=== PATIENT | female | born 1990 | race Caucasian/White ===

== ENCOUNTER 2017-01-19 08:10 | Emergency (ER) | payer OTHER ==
--- NOTE | 2017-01-19 08:33 | EDPHY ---
HPI/HX/ROS/PE/MDM Narrative: CHIEF COMPLAINT: Diplopia, headache HPI: The patient is a 26 y/o female arriving with her complaining of headache for the last 3 weeks and diplopia onset 3 days ago. She describes a waxing and waning throbbing posterior headache for about 3 weeks. She saw her PCP 2 weeks ago for this and was started on amitriptyline, but did not have any improvement after 3 days of use and discontinued it. She had some improvement in her pain with ibuprofen. Three days ago she developed associated horizontal diplopia and saw her senior water/wastewater engineer. He noticed a disconjugate gaze, but no sign of optic nerve swelling, and recommended a brain MRI. When closing either eye her diplopia resolves. Upon waking today, her pain localized more to her left occipital region and she opted to come into the ED for evaluation. Her pain extends slightly into her neck. She denies recent head or neck trauma, weakness , paresthesias, fever, or other symptoms. She has no prior history of eye issues or headaches. REVIEW OF SYSTEMS: Aside from elements discussed in the HPI, a comprehensive 10-point review of systems was reviewed and is negative. 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 Currently works as OBGYN RN. at bedside. PHYSICAL EXAM: General:Patient is alert, in no acute distress. ENT:Disconjugate gaze, abduction weakness of her left eye. PERRLA. ENT inspection normal. Neck: Normal inspection. Full range of motion. Respiratory:No respiratory distress. Breath sounds normal bilaterally. Cardiovascular: Regular rate and rhythm. Strong peripheral pulses. Normal cap refill. Abdomen:The abdomen is nontender to palpation. There are no peritoneal signs. Back: Normal to inspection. No tenderness to palpation. Skin: Normal color. No rash. Warm and dry. Extremities: Normal appearance. Full range of motion. Neuro: Oriented x3. Normal motor function. Normal sensory function. ED Course: This is a healthy 26 y/o female who presents with a 3-week history of posterior headache and 3-day history of diplopia. She has an obvious disconjugate gaze with abduction weakness of her left eye on exam that could indicate a 6th nerve palsy. Her neuro exam is otherwise normal. Plan for brain MRI with and without IV contrast and MRA. 1mg PO Ativan administered for anxiety. IV established and basic labs drawn. Brain MRI shows nothing acute, likely incidental finding in clivis may require CT follow up. Consulted with Dr. Blount, neurology. He recommends prednisone and will evaluate her in his office tomorrow. I discussed the MRI results and plan with the patient. We will perform follow up head CT here. 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 Consulted with neurosurgery. He will review films and call me back. Neurosurgery is assessing patient in the ED and will discuss treatment options with her. 1335: Dr. Stone discussed imaging and treatment options with patient. He recommends discharge on Medrol dose pack and outpatient follow up with his office for biopsy. - Data Points Imaging Results: Imaging Impressions Brain MRI 01/19/17 08:37 Impression: 1. Expansile lesion in the clivus. 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 Recommend noncontrast CT for further evaluation to evaluate for erosion that would indicate a more aggressive lesion. 2. Otherwise, normal MRI of the brain without and with contrast. Results called and discussed with Donell Mcfarlane M.D. on January 19, 2017 at 10:35 a.m. Head MRA 01/19/17 08:37 Impression: Negative MRA of the [place]. Results called and discussed with Donell Mcfarlane MD at 01/19/2017 10:37. Neck MRA 01/19/17 08:37 Impression: Normal MR angiogram of the neck. Measurement of carotid stenosis is based on the residual internal carotid diameter with [place] Symptomatic Carotid Endarterectomy Trial (NASCET) based stenosis levels. Results called and discussed with Donell Mcfarlane MD at 01/19/2017 1030 hours. Imaging: Discussed imaging studies w/ call center director Radiologist, I viewed and interpreted images myself Laboratory Results: Laboratory Results 01/19/17 08:40 01/19/17 08:40 01/19/17 01/19/17 01/19/17 08:40 08:40 08:40 WBC 10.12 10^3/uL H 10^3/uL (3.80-9.50) RBC 4.73 10^6/uL 10^6/uL (4.18-5.33) Hgb 15.0 g/dL g/dL (12.6-16.3) Hct 42.3 % % (38.0-47.0) MCV 89.4 fL fL (81.5-99.8) MCH 31.7 pg pg (27.9-34.1) MCHC 35.5 g/dL g/dL (32.4-36.7) RDW 11.7 % % (11.5-15.2) Plt Count 320 10^3/uL 10^3/uL (150-400) MPV 9.4 fL fL (8.7-11.7) Neut % (Auto) 74.1 % % (39.3-74.2) Lymph % (Auto) 16.5 % % (15.0-45.0) [place] % (Auto) 6.7 % % (4.5-13.0) Eos % (Auto) 0.6 % % (0.6-7.6) Baso % (Auto) 0.8 % % (0.3-1.7) Nucleat RBC Rel Count 0.0 % % (0.0-0.2) Absolute Neuts (auto) 7.50 10^3/uL H 10^3/uL (1.70-6.50) Absolute Lymphs (auto) 1.67 10^3/uL 10^3/uL (1.00-3.00) Absolute Monos (auto) 0.68 10^3/uL 10^3/uL (0.30-0.80) Absolute Eos (auto) 0.06 10^3/uL 10^3/uL (0.03-0.40) Absolute Basos (auto) 0.08 10^3/uL 10^3/uL (0.02-0.10) Absolute Nucleated RBC 0.00 10^3/uL 10^3/uL (0-0.01) Immature Gran % 1.3 % H % (0.0-1.1) Immature Gran # 0.13 10^3/uL H 10^3/uL (0.00-0.10) Sodium 140 mEq/L mEq/L (134-144) Potassium 3.8 mEq/L mEq/L (3.5-5.2) Chloride 103 mEq/L mEq/L (97-110) Carbon Dioxide 23 mEq/l mEq/l (22-31) Anion Gap 14 mEq/L mEq/L (8-16) BUN 12 mg/dL mg/dL (7-23) Creatinine 0.9 mg/dL mg/dL (0.6-1.0) Estimated GFR > 60 Glucose 99 mg/dL mg/dL (70-100) Calcium 9.9 mg/dL mg/dL (8.5-10.4) Beta HCG, Qual NEGATIVE Medications Given: Discontinued Medications Diazepam (Valium) 5 mg PO EDNOW ONE Stop: 01/19/17 08:53 Last Admin: 01/19/17 09:05 Dose: 5 mg Prednisone (Prednisone) 60 mg PO EDNOW ONE Stop: 01/19/17 10:37 Last Admin: 01/19/17 11:13 Dose: 60 mg General Time Seen by Provider: 01/19/17 08:12 Initial Vital Signs: Initial Vital Signs Temperature (C) 36.8 C 01/19/17 08:14 Heart Rate 90 01/19/17 08:14 Respiratory Rate 16 01/19/17 08:14 Blood Pressure 120/77 01/19/17 08:14 O2 Sat (%) 96 01/19/17 08:14 O2 Delivery Mode Room Air Allergies/Adverse Reactions: No Known Allergies Allergy (Unverified 01/19/17 08:13) Home Medications: Medication Instructions Recorded Norgestimate-Ethinyl Estradiol 1 each PO DAILY 01/19/17 [Trinessa Lo Tablet] predniSONE 60 mg PO ONCE 1 Days tab 01/19/17 Departure - Departure Disposition: Home, Routine, Self-Care Clinical Impression: Diplopia, Chordoma Condition: Good Instructions: Diplopia (ED), Methylprednisolone (By mouth) Additional Instructions: 1. Follow up with Dr. Stone in the next week as directed. 2. Take Medrol as prescribed. 3. Return to the ED for severe pain, weakness or numbness on one side of your body, fever, or other worsening of condition. Referrals: Valentina Bautista NP [Primary Care Provider] - As per Instructions Fuad Stone MD [Medical Doctor] - As per Instructions Prescriptions: predniSONE 60 mg PO ONCE 1 Days tab Report Scribed for: Donell Mcfarlane Report Scribed by: Tessa Davidson Date of Report: 01/19/17 Time of Report: 08:21 Physician Review and Approval Statement: Portions of this note were transcribed by an ED scribe. I personally performed the history, physical exam, and medical decision making; and confirm the accuracy of the information in the transcribed note.
[2017-01-19] MEDS ORDERED: GADOBUTROL 10 ML VIAL IVP ONE (08:43)
[2017-01-19 08:49] LABS: % IMMATURE GRANULYOCYTES 1.3 % (0.0-1.1); ABSOLUTE IMMATURE GRANULOCYTES 0.13 10^3/uL (0.00-0.10); ADD DIFF? NO; ADD MORPH? NO; ADD SCAN? NO; ATYPICAL LYMPHOCYTE FLAG 10 (0-99); FRAGMENT RBC FLAG 0 (0-99); HEMATOCRIT 42.3 % (38.0-47.0); LEFT SHIFT FLG 10 (0-99); LIPEMIA HEMOLYSIS FLAG 90 (0-99); MEAN CELL HEMOGLOBIN 31.7 pg (27.9-34.1); MEAN CELL HEMOGLOBIN CONCENTR. 35.5 g/dL (32.4-36.7); MEAN CELL VOLUME 89.4 fL (81.5-99.8); MEAN PLATELET VOLUME 9.4 fL (8.7-11.7); PLATELET CLUMPS FLAG 0 (0-99); PLATELET COUNT 320 10^3/uL (150-400); RED BLOOD CELL COUNT 4.73 10^6/uL (4.18-5.33); RED CELL DISTRIBUTION WIDTH 11.7 % (11.5-15.2)
[2017-01-19] MEDS ORDERED: DIAZEPAM 5 MG TAB PO ONE (08:52)
[2017-01-19 09:14] LABS: ANION GAP 14 mEq/L (8-16); CALCIUM 9.9 mg/dL (8.5-10.4); CARBON DIOXIDE 23 mEq/l (22-31); CHLORIDE 103 mEq/L (97-110); CREATININE 0.9 mg/dL (0.6-1.0); GLOMERULAR FILTRATION RATE > 60; GLUCOSE 99 mg/dL (70-100); POTASSIUM 3.8 mEq/L (3.5-5.2); SODIUM 140 mEq/L (134-144)
[2017-01-19] MEDS ORDERED: predniSONE 20 MG TAB PO ONE (10:36)
[2017-01-19 11:15] VITALS: PULSE 99
[2017-01-19 13:53] VITALS: BP 125/71; RESP 18; TEMP 98.8; O2SAT 96
--- NOTE | 2017-01-19 16:07 | GCON ---
[f rep st] CONSULTATION NEUROSURGERY CONSULTATION CHIEF COMPLAINT: Double vision and headache. HISTORY OF PRESENT ILLNESS: This is a 26-year-old female, who states that she started having headach es approximately 3 weeks ago but had been getting better over the last few days, when she noticed maría t she started to have double vision 3 days ago. She states at first it was only with far away items but, as the days have progressed, she started having double vision with closer items as well. She st ates this is worse when looking straight on or to the left but goes away if she looks over to the rig ht. She denies any other symptoms such as nausea, vomiting, any numbness, tingling or pain in her ar ms or legs, any problems with her balance. 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 She said she also went to her PCP who started her on amitriptyline 3 weeks ago to try to help with her headaches but she only took this for 3 days as she did not feel it was helping. The patient, at this time, is not currently on any other blood thinnin g medications and has no other significant past medical history. She, otherwise, has no complaints a t this time. REVIEW OF SYSTEMS: All pertinent positive and negative review of systems are as stated in HPI. PAST MEDICAL HISTORY: Not significant for any chronic medical conditions. CURRENT MEDICATIONS: Include control, multivitamin and ibuprofen. PAST SURGICAL HISTORY: History of a tonsillectomy and 2 endoscopies for esophageal ulcers. ALLERGIES: Patient has no known drug allergies. FAMILY HISTORY: The patient denies any past family history of any brain lesions or other neurologic history such as stroke. 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 She is ma rried and her is at her bedside today. She denies any tobacco use, drinks alcohol socially a nd denies any other illicit drug use. PHYSICAL EXAMINATION: VITAL SIGNS: Blood pressure 125/71, heart rate 99, respiratory rate 18, O2 sa t 96% on room air. Temperature 38.1. CONSTITUTIONAL: This is a well-developed, well-nourished fema le, in no acute distress. HEENT: Head is normocephalic, atraumatic. Eyes: Pupils are equal and re active to light and accommodation. Extraocular muscles are intact except on the left eye, the left e ye does not deviate fully to the left and thus has a cranial nerve 6 palsy on the left. NEURO: Cran ial nerves 2-12 are grossly intact. Tongue protrusion is midline. Palate rises symmetrically. Acce ssory muscles are 5/5 and equal in strength. Motor: Bilateral upper extremities are 5/5 and equal i n strength in all muscle groups including biceps, triceps, wrist extensors, flexors, interossei and g rip, and bilateral lower extremities are 5/5 and equal in strength in all muscle groups including linda driceps, hamstrings, dorsiflexion, plantar flexion, and EHL. Sensation is intact over the normal pavel matomal distribution of the body. She has a negative pronator drift. She has negative Bonilla's. T oes are downgoing. EXTREMITIES: No cyanosis or edema noted. Her gait was not visualized today. LABORATORY DATA: Labs taken on 01/19/2017 reveal a white blood cell count of 10.12, red blood cell c ount 4.73, hemoglobin 15, platelets 328. Sodium 140, potassium 3.8, chloride 103, carbon dioxide 23, anion gap 14, BUN 12, creatinine 0.9, calcium 9.9, glucose 99. DIAGNOSTIC IMAGING REVIEW: A brain MRI with and without contrast was performed and shows expansile l esion in the clivus; this is nonspecific but could represent fibrous dysplasia. Recommend noncontras t CT for further evaluation to evaluate for erosion that would indicate a more aggressive lesion. Oth erwise normal MRI of the brain without and with contrast. A head MRA was performed and shows negativ e MRA of the [place]. A neck MRA was performed and shows a normal MRA of the neck. A head CT w ithout contrast was performed and shows a lytic lesion involving the clivus with associated erosions as detailed above. 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 Other possibilities such as chondrosarcoma mass to be considered. No significant abnormality seen associated with the cerebral parenchyma or b rainstem. ASSESSMENT AND PLAN: This is a 26-year-old female with approximately a 3-week history of headaches a nd a 3-day history of diplopia who comes to [facility] Emergency Room today for this. She was seen in the [facility] Emergency Room by myself and Dr. Stone at approximately 12:[address] and MRI images reveal a lytic lesion involving the clivus associated with erosions. 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 In order to make a final diagnosis, a biopsy would need to be obtained. We ta lked to the patient at length about this as well, and she would like to explore her options, possibly with the [facility] to do the biopsy or with our service. If performed by us, we would likely do th is alongside with ENT for the biopsy. The patient, at this time, would like to be discharged and go home for further opinion. She was started on 60 mg of prednisone 1 time dose in order to help with h er vision. She is to follow up with us if she would like to move forward with getting a biopsy. We could do this possibly soon, in the next couple of weeks. She is to call our office with any new or worsening symptoms. She was seen by myself and Dr. Stone in the emergency room at 12:45 p.m. Any qu estions or concerns, please do not hesitate to contact Neurosurgery. The patient will be discharged h ome on steroids and will follow up with us as we get this biopsy scheduled. /[id number]/MODL
== END 2017-01-19 16:19 | disposition home or self-care (01) ==
DX: H53.2 Diplopia (principal); C41.2 Malignant neoplasm of vertebral column
CPT/HCPCS: A9585